=== PATIENT | female | born 1990 | race Caucasian/White ===

== ENCOUNTER 2025-01-23 19:11 | Emergency (ER) | payer MEDICAID ==
[~2025-01-23] VITALS: Ht 149.9 cm; Wt 87.2 kg
[2025-01-23 19:22] VITALS: BP 196/105; PULSE 84; RESP 18; TEMP 97.9; O2SAT 98
[2025-01-23] MEDS ORDERED: ibuprofen tablet 400 MG TABLET PO ONE (21:10)
--- NOTE | 2025-01-23 21:17 | Physician Documentation ---
History of Present Illness ~ Chief Complaint: Cold, cough & congestion Stated Complaint: COLD SYMPTOMS Time Seen by MD: 19:40 HPI Patient is a 34-year-old female that presents to the emergency department for evaluation of cough cold congestion fever headache times 2-3 days. Patient denies fever chills nausea vomiting diarrhea at this time. No other symptoms reported at this time. Medication Reconciliation Allergies: Coded Allergies: No Known Allergies (Unverified , 01/23/25) Review of Systems ROS As stated above in the HPI, otherwise all systems are reviewed and negative. Physical Exam Vital Signs: Temperature: 97.9, Source: Oral, Heart Rate: 84, Respiratory Rate: 18, BP: 196/105, Pulse Oximetry: 98, Weight: 87.200 Oxygen Flow Rate: 0 Physical Exam VITALS: Reviewed and as above. GENERAL: Alert, no apparent distress. HEENT: Normocephalic, atraumatic, PERRL, EOMI, dry mucosa, no erythema RESPIRATORY: Lungs clear, normal breath sounds, no respiratory distress. CHEST: No accessory muscle use, no retractions, cough noted during examination. CV: Regular rate, rhythm, no edema, no murmur, No: JVD GI: Soft, non-tender, bowels sounds present, no rebound, guarding, or rigidity BACK: No CVA tenderness, or swelling MUSCULOSKELETAL No deformities, no edema SKIN: Warm and dry, no rash NEURO: Oriented x4, No motor or sensory deficit PSYCH: Normal mood and affect, no agitation Progress Results/Orders Results/Orders Orders - JULISSA ROUSE PROPERTY COORDINATOR Ibuprofen Tablet (Motrin Tablet) (01/23/25 21:10) Acetaminophen 325mg Tablet (Tylenol Tabl (01/23/25 21:10) Vital Signs 01/23/25 19:22 Temp 97.9 Pulse 84 Resp 18 B/P (MAP) 196/105 Pulse Ox 98 O2 Flow Rate 0 Medical Decision Making Additional information obtaine: other Findings Patient evaluated in the emergency department for acute onset of upper respiratory symptoms. COVID-19, influenza A, and influenza B tests are negative at this time. No evidence of bacterial infection or other complications. Diagnosis is viral upper respiratory infection per CDC criteria, based on clinical presentation and exclusion of other recognized causes. Patient received acetaminophen (Tylenol) and ibuprofen in the ED, with reported improvement in symptoms. No indication for antiviral therapy or antibiotics, as rapid viral testing is negative and clinical features are consistent with a self-limited viral process. Supportive care is recommended. Strict return precautions discussed: Return immediately for worsening symptoms, including persistent high fever (>38.0C), shortness of breath, chest pain, confusion, inability to tolerate oral intake, or signs of dehydration. Return for new focal findings (e.g., unilateral chest pain, severe sore throat, or neck swelling). Return for any concern of secondary bacterial infection (e.g., purulent sputum, persistent symptoms >10 days, or new onset of severe headache). Patient instructed to follow up with primary care provider for ongoing management and reassessment as needed. Patient is stable for discharge at this time. Differential Dx:Considerations: Include: Allergic rhinitis, Influenza, Otitis media, Peritonsillar abscess, Pharyngitis-Diphtheria, Pharyngitis-Streptoccal, Pharyngitis-Viral, Pneumonia, Pnuemonitis, Sinusitis, URI, Other Departure Disposition: 01 HOME / SELF CARE / HOMELESS Impression: Primary Impression: Viral upper respiratory infection Condition: Stable Discharge Instructions: Upper Respiratory Infection, Adult Additional Instructions: You have been diagnosed with a viral upper respiratory infection (such as the common cold). Your tests for COVID-19, influenza A, and influenza B were negative. You received acetaminophen (Tylenol) and ibuprofen in the emergency department, which helped your symptoms. What to expect: Most viral upper respiratory infections get better on their own within 1014 days. Symptoms may include cough, sneezing, runny nose, sore throat, and nasal congestion. It is normal for symptoms to peak in the first few days and then gradually improve. How to care for yourself: Rest and drink plenty of fluids. You may use acetaminophen (Tylenol) or ibuprofen for pain or fever as needed. Other options for symptom relief include nasal saline rinses, decongestants, antihistamines, or cough suppressants if desired. Antibiotics are not helpful for viral infections and are not needed. Prevent spreading infection: Wash your hands often. Cover your mouth and nose when coughing or sneezing. Dispose of tissues promptly. Avoid close contact with others until you feel better. Follow-up: Please follow up with your primary care provider as discussed. Return to the emergency department or contact your doctor right away if you experience any of the following: Fever higher than 101F (38.3C) that lasts more than 3 days or returns after improving. Trouble breathing, shortness of breath, or chest pain. Severe sore throat, neck swelling, or difficulty swallowing. Confusion, severe headache, or new weakness. Signs of dehydration (such as not urinating, dry mouth, or dizziness). Symptoms that last longer than 10 days without improvement, or get worse after initially improving (double worsening). If you have any other concerns or questions, please contact your healthcare provider. Referrals: NO PRIMARY CARE PROVIDER (PCP) Education Educated: Patient Educated regarding: diagnosis, treatment, need for follow up Signature Scribe Signature: A Attestation: Scribed for Julissa Rouse by SUZIE Delaney . 01/23/25 21:17 JULISSA ROUSE Jan 23, 2025 21:17
== END 2025-01-23 21:28 | disposition home or self-care (01) ==
LOC: ER 19:11
DX: J06.9 Acute upper respiratory infection, unspecified (principal); B97.89 Other viral agents as the cause of diseases classified elsewhere
CPT/HCPCS: 99282